=== PATIENT | female | born 1975 | race Caucasian/White ===

== ENCOUNTER → 2020-01-23 16:05 | Outpatient (CLI) | payer BC, SELFPAY ==
--- NOTE | ~2020-01-23 | XR_ITS ---
EXAMINATION: XR chest 2V DATE: 01/23/2020 17:57 INDICATION: Bronchitis. TECHNIQUE: Frontal and lateral views of the chest were obtained. COMPARISON: Chest 2 views 06/24/2013 FINDINGS: A calcified left lung nodule is consistent with old granulomatous disease. No pleural effus ion or pneumothorax. The heart size is normal. Surgical clips in the right upper quadrant are likely from cholecystectomy. IMPRESSION: 1. No acute cardiopulmonary disease. Reviewed, dictated and finalized at location A.
== END ==
PROVIDERS: PCP Physician Assistant; Visit Provider Physician Assistant
DX: J40 Bronchitis, not specified as acute or chronic (principal)
CPT/HCPCS: 71046

== ENCOUNTER 2020-04-11 14:01 | Outpatient (CLI) | payer BC, SELFPAY ==
--- NOTE | 2020-04-12 10:26 | WPDPFTINT ---
PFT Interpretation PFT Interpretation: This PFT met all criteria for ATS standards and reproducibility FEV/FVC post bronchodilator 79% FEV1 99% FVC 96% TLC 91% RV 73% RV/TLC 27% DLCO 84% when adjusted for alveolar volume but not adjusted for hemoglobin Flow volume loops were normal. Impression: Normal PFT. Clinical correlation is advised.
== END 2020-04-11 14:02 | disposition home or self-care (01) ==
PROVIDERS: PCP Nurse Practitioner Adult Health; Visit Provider Nurse Practitioner Adult Health
DX: R06.00 Dyspnea, unspecified (principal)
CPT/HCPCS: 94375; 94726; 94729

== ENCOUNTER 2021-06-21 11:14 | Emergency (ER) | payer BC, SELFPAY ==
--- NOTE | ~2021-06-21 | XR_ITS ---
XR chest 2V DATE: 06/21/2021 11:53 INDICATION: Cough, fatigue TECHNIQUE: 2 views COMPARISON: 01/23/2020 2 view chest FINDINGS: Normal heart size. No hilar or mediastinal enlargement. No pulmonary infiltrate or consolid ation, pleural effusion or pulmonary vascular congestion or pneumothorax. Surgical clips, right upper quadrant, consistent with cholecystectomy IMPRESSION: No active cardiopulmonary disease or significant change since 01/23/2020 Reviewed, dictated and finalized at location A. 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
[2021-06-21 11:26] VITALS: BP 137/90; PULSE 89; RESP 16; TEMP 36.3; O2SAT 100
--- NOTE | 2021-06-21 11:37 | ED.URI ---
HPI - URI/Sore Throat General Chief Complaint: Upper Respiratory Infection Stated Complaint: Chest Congestion,Shortness of Breath Time Seen by Provider: 06/21/21 11:37 Source: patient Mode of arrival: ambulatory Limitations: no limitations History of Present Illness HPI Narrative: Domonique Asencio is a 46 yo female no PMH comes to [facility] with complaints of a dry cough and congestion and occasional fullness of ears that it was going on for a number of weeks after having Covid at the beginning of May along with her . She had a video visit and was given doxycycline and steroids that she is finished and still has symptoms Related Data Allergies Allergy/AdvReac Type Severity Reaction Status Date / Time Penicillins Allergy Mild Rash Verified 06/21/21 11:35 Sulfa (Sulfonamide Allergy Mild Rash Verified 06/21/21 11:35 Antibiotics) cephalexin AdvReac Intermediate Hives Verified 06/21/21 11:35 Review of Systems Review of Systems: CONSTITUTIONAL: Denies fever, chills, sweats. EYES: Denies visual changes, redness, discharge. ENT: Denies rhinorrhea, has congestion, sore throat, otalgia. CARDIOVASCULAR: Denies chest pain, palpitations, edema. RESPIRATORY: Denies dyspnea, wheezing, has cough GASTROINTESTINAL: Denies abdominal pain, nausea, vomiting, diarrhea. GENITOURINARY: Denies dysuria, hematuria, abnormal discharge SKIN: Denies rash or itching. NEUROLOGIC: Denies numbness, or focal weakness. PSYCHIATRIC: Denies anxiety or depression. PMFSH Past Medical History Medical History Dermatofibroma Family History Family History Father Hypertension Family history of diabetes mellitus in first degree relative Family history of glaucoma Other Diabetes mellitus Family history of arthritis Family history of heart disease in male family member before age 55 Social History Social History Smoking status: Never smoker Alcohol intake: never Comments At time of signature, I agree with nursing past medical, surgical, social and family history. There is no relevant family history pertinent to the presenting complaint. Exam Narrative: GENERAL: This is a well-nourished, well-developed patient, in mild distress. HEAD: normocephalic, atraumatic. EYES: Sclera clear/white. Vision is grossly intact. EARS: External ears normal, auditory canals erythema and without drainage, fluid behind TMs. Hearing grossly intact. NOSE: External nose normal without nasal discharge, nares without redness, no rhinorrhea. THROAT: Mucous membranes moist, posterior pharynx erythema NECK: Neck supple, non-tender CARDIOVASCULAR: Regular rate and rhythm without murmurs, gallops, or rubs. RESPIRATORY: Clear to auscultation. Breath sounds equal bilaterally. No wheezes, rales, or rhonchi. GASTROINTESTINAL: Abdomen soft, SKIN: warm, intact with no suspicious lesions or rash, good texture and turgor. NEURO: awake, alert, and oriented to person, place and time. There were no obvious focal neurologic abnormalities. Steady gait EXTREMITIES: Normal range of motion. BACK: Nontender without deformity Course Course Emergency Course: Patient here with continuing upper respiratory symptoms after having Covid the beginning of May and having completed a course of steroids and doxycycline for bronchitis chest x-ray done- no acute pathology flu- started on zyrtec, albuterol inhaler, tessalon perles Level of Care: Express Care Visit Vital Signs Vital signs: Vital Signs Temperature 97.4 F L 06/21/21 11:26 Pulse Rate 89 06/21/21 11:26 Respiratory Rate 16 06/21/21 11:26 Blood Pressure 137/90 06/21/21 11:26 Pulse Oximetry 100 06/21/21 11:26 Temperature 97.4 F L 06/21/21 11:26 Pulse Rate 89 06/21/21 11:26 Respiratory Rate 16 06/21/21 11:26 Blood Pressure 137/90
== END 2021-06-21 12:35 | disposition home or self-care (01) ==
PROVIDERS: Emergency Provider Nurse Practitioner; PCP Nurse Practitioner Adult Health
DX: J06.9 Acute upper respiratory infection, unspecified (principal); Z86.16 Personal history of COVID-19
CPT/HCPCS: 71046; 87804; 99213; G0463

== ENCOUNTER 2022-06-17 16:37 | Emergency (ER) | payer BC, SELFPAY ==
--- NOTE | ~2022-06-17 | XR_ITS ---
EXAMINATION: XR chest 2V DATE: 06/17/2022 17:17 INDICATION: 5 days of cough TECHNIQUE: PA and lateral views of the chest were obtained. COMPARISON: Chest radiograph dated 06/21/2021 FINDINGS: No airspace opacities, pulmonary edema, pleural effusion or pneumothorax. The cardiomediastinal silho uette is normal. Cholecystectomy clips in right upper quadrant. IMPRESSION: 1. No acute cardiopulmonary disease. Reviewed, dictated and finalized at location A. 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
[2022-06-17 16:44] VITALS: BP 136/88; PULSE 88; RESP 16; TEMP 36.3; O2SAT 99
[2022-06-17 16:47] VITALS: BP 136/88; PULSE 88; RESP 16; TEMP 36.3; O2SAT 99
--- NOTE | 2022-06-17 16:47 | ED.URI ---
HPI - URI/Sore Throat General Chief Complaint: Upper Respiratory Infection Stated Complaint: Chest Pain,Fatigue Time Seen by Provider: 06/17/22 16:56 Source: patient, RN notes reviewed and old records reviewed Mode of arrival: ambulatory Limitations: no limitations History of Present Illness HPI Narrative: 47-year-old female presents to the [facility] with complaints of fatigue and intermittent chest wall pain, worse when she breathes cold air. reports a dry cough. the symptoms started last week approximately 5 days ago. Has not taken anything for her symptoms verbalizes Concern for pneumonia Related Data Allergies Allergy/AdvReac Type Severity Reaction Status Date / Time Penicillins Allergy Mild Rash Verified 06/21/21 11:35 Sulfa (Sulfonamide Allergy Mild Rash Verified 06/21/21 11:35 Antibiotics) cephalexin AdvReac Intermediate Hives Verified 06/21/21 11:35 Review of Systems Review of Systems: All systems reviewed & are unremarkable except as noted in HPI and below Constitutional: Constitutional: Reports no additional constitutional complaints Eyes: Eyes: Reports no additional eye complaints ENT: Reports as per HPI Cardiovascular: Cardiovascular: Reports no additional cardiovascular complaints, Denies chest pain and Denies dyspnea Respiratory: Respiratory: Reports as per HPI, Denies chest congestion, Reports cough and Denies dyspnea Gastrointestinal: Gastrointestinal: Reports no additional gastrointestinal complaints, Denies abdominal pain, Denies nausea and Denies vomiting Musculoskeletal: Musculoskeletal: Reports no additional musculoskeletal complaints Integumentary/Breasts: Skin/Breast: Reports system reviewed and no additional complaints, except as docu Neurologic: Reports system reviewed and no additional complaints, except as documented Psychiatric: Psychiatric: Reports no additional psychiatric complaints Allergic/Immunologic: Allergic/Immunologic: Reports no additional allergic/immunologic complaints [facility] Past Medical History Medical History Dermatofibroma Family History Family History Father Hypertension Family history of diabetes mellitus in first degree relative Family history of glaucoma Other Diabetes mellitus Family history of arthritis Family history of heart disease in male family member before age 55 Social History Social History Smoking status: Never smoker Alcohol intake: never Comments At the time of my signature, I reviewed and agree with the nursing past medical, surgical, social, and family history. There is no relevant family history pertinent to the patient complaint. Exam Const: General: cooperative, healthy appearing, comfortable, no acute distress, well developed, alert and well nourished Nutritional Appearance: well nourished Orientation/consciousness: patient oriented x3 Limitations: no limitations HENMT: Head: normal to inspection Ears: hearing grossly normal bilaterally and external ears normal Face/Nose/Sinus: Normal external nose present, Normal nares present, Normal nasal mucous membranes and turbinates present and normal facial exam Face and sinus: normal facial exam Mouth: Yes Normal oral and palatal mucosa present, Yes lip normal and Yes moist mucous membranes Throat: posterior oropharynx normal and uvula midline Eyes: General: appearance normal, both eyes and all related structures Alignment and Position: alignment normal Periorbital: periorbital findings normal Conjunctivae: conjunctivae normal Pupils: Equal, round and reactive pupils present EOM: EOMs intact bilaterally Neck: Neck: normal visual inspection, full ROM, no lymphadenopathy and no meningeal signs Chest: Chest palpation & inspection: normal inspection of the chest Resp: Effort & Inspection: normal respir
== END 2022-06-17 17:43 | disposition home or self-care (01) ==
PROVIDERS: Emergency Provider Nurse Practitioner; Referring Provider Nurse Practitioner
DX: J40 Bronchitis, not specified as acute or chronic (principal); Z20.822 Contact with and (suspected) exposure to COVID-19
CPT/HCPCS: 71046; 87426; 87804; 99213; C9803; G0463

== ENCOUNTER 2022-11-25 09:00 | Outpatient (NON) | payer BC, SELFPAY | END 2022-11-25 09:01 | disposition home or self-care (01) | LOC: ANHLAB 11-26 13:55 | PROVIDERS: Visit Provider Nurse Practitioner | DX: D49.2 Neoplasm of unspecified behavior of bone, soft tissue, and skin (principal) | CPT/HCPCS: 88305 ==

== ENCOUNTER 2022-12-16 12:32 | Outpatient (NON) | payer BC, SELFPAY | END 2022-12-16 12:33 | disposition home or self-care (01) | LOC: ANHLAB 12-17 12:34 | PROVIDERS: Visit Provider Nurse Practitioner | DX: L90.5 Scar conditions and fibrosis of skin (principal) | CPT/HCPCS: 88305 ==

== ENCOUNTER 2023-11-18 10:50 | Emergency (ER) | payer BC, SELFPAY ==
[2023-11-18 11:01] VITALS: BP 124/87; PULSE 106; RESP 16; TEMP 36.9; O2SAT 97
--- NOTE | 2023-11-18 11:01 | ED.URI ---
HPI - URI/Sore Throat General Chief Complaint: Upper Respiratory Infection Stated Complaint: Fever, Tightness in Chest Time Seen by Provider: 11/18/23 11:01 Source: patient Mode of arrival: ambulatory Limitations: no limitations History of Present Illness HPI Narrative: 48 yo F presents with c/o cough, nasal and chest congestion, fatigue, bodyaches, fever for 3 days. Using cough drops and tylenol to treat symptoms. Concerned because congestion in chest, pneumonia. No SOB/CP. All systems reviwed and negative except as noted above. Related Data Home Medications Medication Instructions Recorded Confirmed No Home Medications 11/18/23 11/18/23 Allergies Allergy/AdvReac Type Severity Reaction Status Date / Time cephalexin Allergy Intermediate Hives Verified 11/18/23 11:01 Penicillins Allergy Mild Rash Verified 11/18/23 11:01 Sulfa (Sulfonamide Allergy Mild Rash Verified 11/18/23 11:01 Antibiotics) Review of Systems Review of Systems: CONSTITUTIONAL: Denies fever, chills, or sweats. EYES: Denies visual changes, redness, or discharge. ENT: reports rhinorrhea, congestion. Denies sore throat, or otalgia. CARDIOVASCULAR: Denies chest pain, palpitations, or edema. RESPIRATORY: reports cough. Denies dyspnea. GASTROINTESTINAL: Denies abdominal pain, nausea, vomiting, or diarrhea. GENITOURINARY: Denies dysuria or hematuria. SKIN: Denies rash or itching. MUSCULOSKELETAL: Denies back pain, joint pain, or myalgia. NEUROLOGIC: Denies headache, numbness, or weakness. PSYCHIATRIC: Denies anxiety or depression. All other systems reviewed are negative, except as documented in HPI. [facility] Past Medical History Medical History Dermatofibroma Family History Family History Father Hypertension Family history of diabetes mellitus in first degree relative Family history of glaucoma Other Diabetes mellitus Family history of arthritis Family history of heart disease in male family member before age 55 Social History Social History Smoking status: Never smoker Alcohol intake: never Comments At time of signature, agree with nursing past medical, surgical, social and family history. There is no relevant family history pertinent to the presenting complaint. Exam Narrative: GENERAL: This is a well-nourished, well-developed patient, ill-appearing but no acute distress HEAD: normocephalic, atraumatic. EYES: PERRL. Sclera clear/white. Vision is grossly intact. EARS: External ears normal, auditory canals clear and without drainage, TMs normal without perforation. Hearing grossly intact. NOSE: External nose normal with clear nasal drainage with erythema to nares. THROAT: Mucous membranes moist, posterior pharynx clear. NECK: Neck supple, non-tender without lymphadenopathy, masses or thyromegaly. CARDIOVASCULAR: Regular rate and rhythm without murmurs, gallops, or rubs. RESPIRATORY: Clear to auscultation. Breath sounds equal bilaterally. No wheezes, rales, or rhonchi. SKIN: warm, Dry, intact with no suspicious lesions or rash, good texture and turgor. NEURO: awake, alert, and oriented to person, place and time. There were no obvious focal neurologic abnormalities. EXTREMITIES: No joint tenderness, effusion, or edema noted. Course Course Level of Care: Express Care Visit Vital Signs Vital signs: Vital Signs Temperature 36.9 C 11/18/23 11:01 Pulse Rate 106 H 11/18/23 11:01 Respiratory Rate 16 11/18/23 11:01 Blood Pressure 124/87 11/18/23 11:01 Pulse Oximetry 97 11/18/23 11:01 Oxygen Delivery Room Air 11/18/23 11:01 Temperature 36.9 C 11/18/23 11:01 Pulse Rate 106 H 11/18/23 11:01 Respiratory Rate 16 11/18/23 11:01 Blood Pressure 124/87 11/18/23 11:01 Pulse Oximetry 97 11/18/23 11:01 Oxygen Delivery Ro
[2023-11-18 11:20] LABS: EDINFLUASCREEN Negative; EDINFLUBSCREEN Negative
== END 2023-11-18 11:22 | disposition home or self-care (01) ==
PROVIDERS: Emergency Provider Nurse Practitioner Family; PCP Emergency Medicine
DX: J06.9 Acute upper respiratory infection, unspecified (principal); Z20.822 Contact with and (suspected) exposure to COVID-19
CPT/HCPCS: 87426; 87804; 99213; G0463

== ENCOUNTER 2023-11-22 16:44 | Emergency (ER) | payer BC, SELFPAY ==
--- NOTE | ~2023-11-22 | XR_ITS ---
Clinical Indication: Cough, fever PA and lateral views of the chest: Comparison: 06/17/2022 Findings: Small right pleural effusion present. Probable discoid left basilar atelectasis. Cardiomed iastinal silhouette is within normal limits. Bones and soft tissues are unremarkable. Impression: Small right pleural effusion. Probable discoid left basilar atelectasis. Reviewed, dictated and finalized at location . Impression: Small right pleural effusion. Probable discoid left basilar atelectasis.
--- NOTE | 2023-11-22 16:53 | ED.URI ---
HPI - URI/Sore Throat General Chief Complaint: Upper Respiratory Infection Stated Complaint: FEVER/COUGH Source: patient, RN notes reviewed and old records reviewed Mode of arrival: ambulatory Limitations: no limitations History of Present Illness HPI Narrative: patient presents with complaints of fever and cough. Patient was seen at [facility] on 11/18/2023. Negative flu and COVID that time. Diagnosed with viral illness. She returns today saying that she is feeling worse . She has been using [id number] ibuprofen and Tylenol with poor relief, albuterol with moderate relief. Related Data Allergies Allergy/AdvReac Type Severity Reaction Status Date / Time cephalexin Allergy Intermediate Hives Verified 11/22/23 16:53 Penicillins Allergy Mild Rash Verified 11/22/23 16:53 Sulfa (Sulfonamide Allergy Mild Rash Verified 11/22/23 16:53 Antibiotics) Review of Systems Review of Systems: All systems reviewed & are unremarkable except as noted in HPI and below Constitutional: Constitutional: Reports as per HPI, Reports no additional constitutional complaints, Reports fever(s) and Reports malaise ENT: Reports system reviewed and no additional complaints, except as documented Cardiovascular: Cardiovascular: Reports no additional cardiovascular complaints Respiratory: Respiratory: Reports no additional respiratory complaints, Reports chest congestion and Reports cough Gastrointestinal: Gastrointestinal: Reports no additional gastrointestinal complaints Musculoskeletal: Musculoskeletal: Reports myalgias PMFSH Past Medical History Medical History Dermatofibroma Family History Family History Father Hypertension Family history of diabetes mellitus in first degree relative Family history of glaucoma Other Diabetes mellitus Family history of arthritis Family history of heart disease in male family member before age 55 Social History Social History Smoking status: Never smoker Alcohol intake: never Comments At the time of my signature, I reviewed and agree with the nursing past medical, surgical, social, and family history. There is no relevant family history pertinent to the patient complaint. Exam Const: General: cooperative, no acute distress, alert, awake and ill appearing Orientation/consciousness: oriented to person, oriented to place and oriented to time HENMT: Head: normal to inspection Resp: Effort & Inspection: normal respiratory effort and able to speak in complete sentences Auscultation: clear to auscultation bilaterally, no crackles, no rales, no rhonchi, no wheezes and diminished lung sounds ( left lower lobe diminished) Cardio: Palpation: normal PMI Rate: regular rate Rhythm: regular rhythm Heart sounds: S1 normal heart sound present and S2 normal heart sound present Neuro: General: oriented to person, oriented to place and oriented to time Cranial nerves: Yes CN's II-XII intact bilaterally Psych: Appearance: grossly normal Thought process: Normal thought process present Insight: Good insight present (Psych) Judgement: Good judgement present (Psych) Course Course Level of Care: Express Care Visit Reevaluation(s) Reevaluation #1: pulse rate went down to 113 after rest and ibuprofen. Patient stable for discharge home Vital Signs Vital signs: Vital Signs Temperature 100.3 F H 11/22/23 16:54 Pulse Rate 120 H 11/22/23 16:54 Respiratory Rate 18 11/22/23 16:54 Blood Pressure 143/97 H 11/22/23 16:54 Pulse Oximetry 96 11/22/23 16:54 Temperature 100.3 F H 11/22/23 17:15 Pulse Rate 120 H 11/22/23 16:54 Respiratory Rate 18 11/22/23 16:54 Blood Pressure 143/97 H 11/22/23 16:54 Pulse Oximetry 96 11/22/23 16:54 Oxygen Delivery Room Air 11/22/23 16:59 Reviewed EMILY - RADHA/Edwige Draper
[2023-11-22 16:54] VITALS: BP 143/97; PULSE 120; RESP 18; TEMP 37.9; O2SAT 96
[2023-11-22 17:15] VITALS: TEMP 37.9
[2023-11-22] MEDS: IBUPROFEN 400 MG TABLET 800 MG PO (17:15)
[2023-11-22 17:25] VITALS: BP 137/95; PULSE 113; RESP 16; TEMP 38.2; O2SAT 97
[2023-11-22 17:36] VITALS: TEMP 38.2
== END 2023-11-22 17:33 | disposition home or self-care (01) ==
PROVIDERS: Emergency Provider Nurse Practitioner Family
DX: J18.9 Pneumonia, unspecified organism (principal)
CPT/HCPCS: 71046; 99213; A9270; G0463

== ENCOUNTER 2023-12-09 17:14 | Emergency (ER) | payer BC, SELFPAY ==
--- NOTE | ~2023-12-09 | XR_ITS ---
EXAMINATION: XR chest 2V DATE: 12/09/2023 17:34 INDICATION: Cough and shortness of breath TECHNIQUE: PA and lateral views of the chest were obtained. COMPARISON: Chest radiograph dated 11/22/2023 FINDINGS: Prior bibasilar opacities have resolved. Calcified nodule at the left lung base consistent with old g ranulomatous disease. No new airspace opacities, pulmonary edema, pleural effusion or pneumothorax. T he cardiomediastinal silhouette is normal. Consistent with cystectomy clips in right upper quadrant. IMPRESSION: 1. No acute cardiopulmonary disease. Reviewed, dictated and finalized at location A.
--- NOTE | 2023-12-09 17:17 | ED.URI ---
HPI - URI/Sore Throat General Chief Complaint: Upper Respiratory Infection Stated Complaint: COUGH/CHEST TIGHT Time Seen by Provider: 12/09/23 17:15 Source: patient Mode of arrival: ambulatory Limitations: no limitations History of Present Illness HPI Narrative: Domonique is a 48-year-old female patient presenting to the clinic today with complaints of cough and chest tightness. She reports this has been ongoing since she was seen last-2 weeks ago. Patient was seen on November 17 and again on November 21. On November 17 she was diagnosed with viral illness and on the she was diagnosed with possible left lower lobe pneumonia. November 21 x-ray reviewed shows probable left basilar atelectasis and a small right pleural effusion. Has been taking doxycycline 100mg daily since she was on the as well as using an albuterol inhaler. She reports shortness of breath only occurs when she is coughing. Patient states she was feeling slightly better with treatment however, feels as though the last few days she is going back down hill. MD elicited complaint: cough, nasal congestion and other (Chest tightness) Related Data Allergies Allergy/AdvReac Type Severity Reaction Status Date / Time cephalexin Allergy Intermediate Hives Verified 12/09/23 17:21 Penicillins Allergy Mild Rash Verified 12/09/23 17:21 Sulfa (Sulfonamide Allergy Mild Rash Verified 12/09/23 17:21 Antibiotics) Review of Systems Review of Systems: Pertinent positives per HPI. Patient denies any fever, chills, rash, headache, visual changes, dizziness, shortness of breath, chest pain, palpitations, nausea, vomiting, diarrhea, constipation, abdominal pain, or any urinary issues. [facility] Past Medical History Medical History Dermatofibroma Family History Family History Father Hypertension Family history of diabetes mellitus in first degree relative Family history of glaucoma Other Diabetes mellitus Family history of arthritis Family history of heart disease in male family member before age 55 Social History Social History Smoking status: Never smoker Alcohol intake: never Comments At the time of my signature, I reviewed and agree with the nursing past medical, surgical, social, and family history. There is no relevant family history pertinent to the patient complaint. Exam Narrative: General: Well-developed, well nourished, in no apparent distress Head: Normocephalic, atraumatic Eyes: Pupils equally round and reactive to light bilaterally, EOM intact, sclera and conjunctive clear, no discharge, lids normal Ears: TMs intact and clear, ear canals clear, no drainage, grossly hearing normal. Nose: Nares patent, no discharge, no inflammation, no sinus tenderness. Mouth: Oral pharynx without lesions or masses, good dentition, MMM. Neck: Supple, trachea midline, no enlargement of anterior or posterior cervical nodes, no thyroid masses or goiter palpable. Cardio: Regular rate and rhythm, s1 and s2 normal, no murmur appreciated. Resp: Clear to auscultation bilaterally, no rhonchi, rales, wheezing or rubs Course Course Emergency Course: Portions of this record may have been created with voice recognition software. Level of Care: Express Care Visit Vital Signs Vital signs: Vital Signs Temperature 36.6 C 12/09/23 17:22 Pulse Rate 78 12/09/23 17:22 Respiratory Rate 16 12/09/23 17:22 Blood Pressure 120/80 12/09/23 17:22 Pulse Oximetry 100 12/09/23 17:22 Temperature 36.6 C 12/09/23 17:23 Pulse Rate 78 12/09/23 17:23 Respiratory Rate 16 12/09/23 17:23 Blood Pressure 120/80 12/09/23 17:23 Pulse Oximetry 100 12/09/23 17:23 Vital signs reviewed MDM - URI/Sore Throat MDM Narrative Medical decision making narrative: At the time of visit sharifa
[2023-12-09 17:22] VITALS: BP 120/80; PULSE 78; RESP 16; TEMP 36.6; O2SAT 100
[2023-12-09 17:23] VITALS: BP 120/80; PULSE 78; RESP 16; TEMP 36.6; O2SAT 100
--- NOTE | 2023-12-10 11:21 | PC.NURSE ---
1100 patient had called in regarding the number of antibiotics that she reported she has left from yesterday's visit; spoke with provider Adan Dominguez and he reports no further antibiotics needed if she had completed the previous prescription. Patient notified to continue treatment ordered yesterday.
== END 2023-12-09 17:48 | disposition home or self-care (01) ==
PROVIDERS: Emergency Provider Nurse Practitioner Family
DX: J40 Bronchitis, not specified as acute or chronic (principal)
CPT/HCPCS: 71046; 99213; G0463

== ENCOUNTER 2024-07-06 11:33 | Emergency (ER) | payer BC, SELFPAY ==
[2024-07-06 11:41] VITALS: BP 140/101; PULSE 82; RESP 18; TEMP 36.3; O2SAT 97
--- NOTE | 2024-07-06 11:45 | ED.URI ---
HPI - URI/Sore Throat General Chief Complaint: Upper Respiratory Infection Stated Complaint: flu Time Seen by Provider: 07/06/24 11:46 Source: patient Mode of arrival: ambulatory Limitations: no limitations History of Present Illness HPI Narrative: 49-year-old female presents with complaint of cough, chest congestion, nasal congestion, fatigue and low-grade fever. Patient reports that she has symptoms for a total of 7-8 days. Was feeling better for a day are to and then symptoms returned. Patient reports history of pneumonia. Feels pain to her left mid back with coughing. Concern For pneumonia. Denies nausea vomiting diarrhea. All systems reviewed and negative except as noted above. Related Data Allergies Allergy/AdvReac Type Severity Reaction Status Date / Time cephalexin Allergy Intermediate Hives Verified 07/06/24 11:40 Penicillins Allergy Mild Rash Verified 07/06/24 11:40 Sulfa (Sulfonamide Allergy Mild Rash Verified 07/06/24 11:40 Antibiotics) Review of Systems Review of Systems: CONSTITUTIONAL: Reports fever, chills, or sweats. EYES: Denies visual changes, redness, or discharge. ENT: reports rhinorrhea, congestion. Denies sore throat, or otalgia. CARDIOVASCULAR: Denies chest pain, palpitations, or edema. RESPIRATORY: reports cough. Denies dyspnea. GASTROINTESTINAL: Denies abdominal pain, nausea, vomiting, or diarrhea. GENITOURINARY: Denies dysuria or hematuria. SKIN: Denies rash or itching. MUSCULOSKELETAL: Denies back pain, joint pain, or myalgia. NEUROLOGIC: Denies headache, numbness, or weakness. PSYCHIATRIC: Denies anxiety or depression. All other systems reviewed are negative, except as documented in HPI. [facility] Past Medical History Medical History Dermatofibroma Family History Family History Father Hypertension Family history of diabetes mellitus in first degree relative Family history of glaucoma Other Diabetes mellitus Family history of arthritis Family history of heart disease in male family member before age 55 Social History Social History Smoking status: Never smoker Alcohol intake: never Comments At time of signature, agree with nursing past medical, surgical, social and family history. There is no relevant family history pertinent to the presenting complaint. Exam Narrative: GENERAL: This is a well-nourished, well-developed patient, ill-appearing but in no acute distress HEAD: normocephalic, atraumatic. EYES: PERRL. Sclera clear/white. Vision is grossly intact. EARS: External ears normal, auditory canals clear and without drainage, TMs normal without perforation. Hearing grossly intact. NOSE: External nose normal with purulent nasal drainage, congestion, erythema and swelling to bilateral nares THROAT: Mucous membranes moist, erythematous with postnasal drainage NECK: Neck supple, non-tender without lymphadenopathy, masses or thyromegaly. CARDIOVASCULAR: Regular rate and rhythm without murmurs, gallops, or rubs. RESPIRATORY: Clear to auscultation. Breath sounds equal bilaterally. No wheezes, rales, or rhonchi. SKIN: warm, Dry, intact with no suspicious lesions or rash, good texture and turgor. NEURO: awake, alert, and oriented to person, place and time. There were no obvious focal neurologic abnormalities. EXTREMITIES: No joint tenderness, effusion, or edema noted. Course Course Level of Care: Express Care Visit Vital Signs Vital signs: Vital Signs Temperature 36.3 C L 07/06/24 11:41 Pulse Rate 82 07/06/24 11:41 Respiratory Rate 18 07/06/24 11:41 Blood Pressure 140/101 H 07/06/24 11:41 Pulse Oximetry 97 07/06/24 11:41 Oxygen Delivery Room Air 07/06/24 11:41 Temperature 36.3 C L 07/06/24 11:41 Pulse Rate 82 07/06/24 11:41 Respiratory Rate 18 07/06/24 11:41 Blood Pressure 140/101 H 07/06/24 11:41 Pulse Oximetry 97 07/06/24 11:41 Oxygen Delivery Room Air 07/06/24 11:41 reviewed MDM - URI/Sore Throat MDM Narrative Medical decision making narrative: negative influenza. Will treat patient for bacterial sinusitis due to duration of symptoms and exam findings. Patient is alert, nontoxic. Recommend she continue [id number]-[id number] medications to treat sinus congestion. Please be advised this is a medical document. It is intended for [id number] communication. It is written in medical language and may contain unfamiliar abbreviations or verbiage. Medical documents are intended to carry relevant information, facts as evident, and the clinical opinion of the practitioner at the time of the encounter. This report may have been done utilizing a voice recognition system. Attempts have been made to correct errors. However, there may be uncorrected grammatical, spelling, and recognition errors present. The file time of this note does not necessarily represent the time of service. Differential Diagnosis Differential diagnosis: Likely upper respiratory infection, sinusitis, viral infection and influenza Discharge Plan Discharge Clinical Impression: Acute bacterial sinusitis Patient Disposition: Home, Self-Care Condition: Stable Instructions: Antibiotic Form, Sinusitis (ED) Additional Instructions: your influenza test was negative today. Take medications as prescribed. Continue taking [id number] medication to treat her symptoms such as DayQuil NyQuil cold and Sinus. Use an [id number]-phcoyhz nasal spray such as Flonase or Nasacort. Place cool mist humidifier in bedroom where you sleep. Follow-up with your doctor if symptoms are not improving. Patient Language: Sinhala Prescriptions: New doxycycline hyclate 100 mg capsule 100 mg PO BID 7 Days Qty: 14 0RF methylprednisolone [Medrol (Cecil)] 4 mg tablets,dose pack See Rx Instructions PO .COMPLEX Qty: 21 0RF Rx Instructions: orally per package directions No Action doxycycline hyclate 100 mg tablet 100 mg PO DAILY Qty: 20 0RF albuterol sulfate 90 mcg/actuation HFA aerosol inhaler 2 puff inhalation QID PRN (Reason: shortness of breath or wheezing) Qty: 8.5 0RF prednisone 20 mg tablet 40 mg PO DAILY 5 Days Qty: 10 0RF Follow-up/Referrals: PHYSICIAN,[facility] [Primary Care Provider] - Time of Disposition: 12:07
[2024-07-06 12:03] LABS: EDINFLUASCREEN Negative (Negative); EDINFLUBSCREEN Negative (Negative)
--- OUTSIDE RECORDS SUMMARY | 2024-07-06 13:26 | XMS_ITS | Clinical Summary ---
Author Organization [facility] Address [address] [place] [address] Phone Care Team Providers Care Skimmer Name Role Phone EnejudsonNigelie BRIAN Primary Care Provider [phone] Allergies Active Allergy Reactions Criticality Noted Date Comments Cephalexin Hives,Swelling High 09/06/2014 Penicillin G Swelling High 02/11/2009 Sulfa (Sulfonamide Antibiotics) Hives High 1008/2008 Medications ergocalciferol, vitamin D2, (VITAMIN D ORAL) Take by mouth daily. Active Vyzulta 0.024 % Drops 1 Active evening primrose oil (EVENING PRIMROSE ORAL) Take by mouth. Active cyanocobalamin, vitamin B-12, (VITAMIN B-12 ORAL) Take by mouth. Activ e flaxseed oil (OMEGA 3 ORAL) Take by mouth. Active BLACK COHOSH ORAL Take by mouth. Activ e estradioL (Yuvafem) 10 mcg tabletIndicatio ns:Vaginal atrophy Insert vaginally nightly for 2 weeks then twice weekly 24 Tablet 3 4 Active Active Problems Problem Noted Date Diagnosed Date S/P laparoscopic assisted vaginal hysterectomy ( LAVH) 04/25/2020 S/P BSO (bilateral salpingo-oophorectomy) 2019 s/p laparoscopy 09/20/2014 Encounters Date Type Department Care Team Description 06/28/2024 External Device Data STL ABSTRACTION Provider, Abstract 05/12/2024 Telephone [facility] Clinical Support [address] [place] [address] Kiley Mariscal RN Lab Results 04/21/2024 7:45 AM QUALITY SPECIALIST Office Visit [facility] [address] [facility] [address] [place] [address] Jenniffer Jiang DNP Encounter for gynecological examination with abnormal finding (Primary Dx); Vaginal atrophy; Screening for colon cancer; Breast cancer screening by mammogram from Last 3 Months Family History Medical History Relation Name Comments Diabetes Father Aamir Stroke Maternal Grandfather Gallito Breast Cancer Maternal Grandmother Breast Cancer Mother Grisel 60-70s; ER+ Diabetes Mother Grisel Relation Name Status Comments Father Aamir Alive Maternal Grandfather Gallito Maternal Grandmother Mother Grisel Alive Social History Tobacco Use Types Packs/Day Years Used Date Smoking Tobacco: Never Smokeless Tobacco: Never Tobacco Cessation:Counseling Given: Not Answered Alcohol Use Standard Drinks/Week Comments No 0 (1 standard drink = 0.6 oz pur e alcohol) Comments No Sex and Gender Information Value Date Recorded Sex Assigned at Not on file Legal Sex Female 5:46 AM QUALITY SPECIALIST Gender Identity Not on file Sexual Orientation Not on file Last Filed Vital Signs Vital Sign Reading Time Taken Comments Blood Pressure 122/80 04/21/2024 7:39 AM QUALITY SPECIALIST Pulse 74 04/26/2020 8:40 AM QUALITY SPECIALIST Temperature 36.7 C (98 F) 04/26/2020 8:40 AM QUALITY SPECIALIST Respiratory Rate 16 04/26/2020 8:40 AM QUALITY SPECIALIST Oxygen Saturation 100% 04/26/2020 8:40 AM QUALITY SPECIALIST Inhaled Oxygen Concentration - - Weight 75.3 kg (166 lb) 04/21/2024 7:39 AM QUALITY SPECIALIST Height 162.6 cm (5' 4 ) 04/21/2024 7:39 AM QUALITY SPECIALIST Body Mass Index 28.49 04/21/2024 7:39 AM QUALITY SPECIALIST Plan of Treatment Upcoming Encounters Date Type Department Care Team (Late st Contact Info) Description 04/25/2025 2:30 PM QUALITY SPECIALIST Office Visit [facility] [address] [phone] Jenniffer Jiang DNP [address] [place] [address] Health Maintenance Due Date Last Done Comments DTAP/TDAP/TD VACCINES (1 - Tdap) 1994 HEPATITIS B VACCINES (1 of 3 - 19+ 3-dose series) 1994 COLORECTAL SCREENING 2020 FIT/FOBT Q 1 year 2020 Flex Sig/CT Colonography Q 5 years 2020 CERVICAL CANCER SCREENING 03/12/2023 03/12/2020 INFLUENZA VACCINE (#1) 2023 BREAST CANCER SCREENING 03/14/2025 03/14/20, 03/14/2024, 03/09/2023, Additional history exists Pre-Diabetes and Diabetes Screening 2027 2024, 04/21/2023 Colorectal Cancer Screening 05/06/2027 FIT-DNA Q 3 years 05/06/2027 05/06/2024 Procedures Procedure Name Priority Date/Time Associated Diagnosis Comments COLON CANCER SCREEN, STOOL DNA Routine 05/06/2024 3:30 PM QUALITY SPECIALIST Screening for colon cancer LIPID PANEL Routine 2024 7:24 AM QUALITY SPECIALIST Encounter for gynecological examination with abnormal finding HEMOGLOBIN A1C Routine 2024 7:24 AM QUALITY SPECIALIST Encounter for gynecological examination with abnormal finding COMPREHENSIVE METABOLIC PANEL Routine 2024 7:24 AM QUALITY SPECIALIST Encounter for gynecological examination with abnormal finding CBC WITH DIFFERENTIAL Routine 2024 7:24 AM QUALITY SPECIALIST Encounter for gynecological examination with abnormal finding MAMMO SCREEN BILAT W OR WO CAD Routine 03/14/2024 8:10 AM QUALITY SPECIALIST CERV/VAG CYTO AGE BASED SCREEN PAP Routine 03/12/2020 4:42 PM QUALITY SPECIALIST Screening for cervical cancer from Last 3 Months or Most Recently Relevant to Health Maintenance Results * COLON CANCER SCREEN, STOOL DNA (05/06/2024 3:30 PM QUALITY SPECIALIST) COLOGUARD RESULT Negative Negative [employer] Comment: NEGATIVE TEST RESULT. A negative Cologuard result indicates a low likelihood that a colorectal cancer (CRC) or advanced adenoma (adenomatous polyps with more advanced pre-malignant features) is present. The chance that a person with a negative Cologuard test has a colorectal cancer is less than 1 in 1500 (negative predictive value >99.9%) or has an advanced adenoma is less than 5.3% (negative predictive value 94.7%). These data are based on a prospective cross-sectional study of 10,000 individuals at average risk for colorectal cancer who were screened with both Cologuard and colonoscopy. ([place] Draper. et al, N Engl J Med 2014;370(14):2623-7604) The normal value (reference range) for this assay is negative. COLOGUARD RE-SCREENING RECOMMENDATION: Periodic colorectal cancer screening is an important part of preventive healthcare for asymptomatic individuals at average risk for colorectal cancer. Following a negative Cologuard result, the [place] Cancer Society and U.S. Multi-Society Task Force screening guidelines recommend a Cologuard re-screening interval of 3 years. References: [place] Cancer Society Guideline for Colorectal Cancer Screening: https://www.cancer.org/cancer/rjtgt-rrqide-beqaiy/hgwixmzie-ggrkqgair-hqkyxoo/ac s-rec ommendations.html.; Piyush ARAMBULA, Johana EMMANUEL, Lorena RinconK, Colorectal Cancer Screening: Recommendations for Physicians and Patients from the U.S. Multi-Society Task Force on Colorectal Cancer Screening , Am J Gastroenterology 2017; 112:4613-1941. TEST DESCRIPTION: Composite algorithmic analysis of stool DNA-biomarkers with hemoglobin immunoassay. Quantitative values of individual biomarkers are not reportable and are not associated with individual biomarker result reference ranges. Cologuard is intended for colorectal cancer screening of adults of either sex, 45 years or older, who are at average-risk for colorectal cancer (CRC). Cologuard has been approved for use by the U.S. FDA. The performance of Cologuard was established in a cross sectional study of average-risk adults aged 50-84. Cologuard performance in patients ages 45 to 49 years was estimated by sub-group analysis of near-age groups. Colonoscopies performed for a positive result may find as the most clinically significant lesion: colorectal cancer [4.0%], advanced adenoma (including sessile serrated polyps greater than or equal to 1cm diameter) [20%] or non- advanced adenoma [31%]; or no colorectal neoplasia [45%]. These estimates are derived from a prospective cross-sectional screening study of 10,000 individuals at average risk for colorectal cancer who were screened with both Cologuard and colonoscopy. (Washington Zhou et al, N Engl J Med 2014;370(14):9748-3563.) Cologuard may produce a false negative or false positive result (no colorectal cancer or precancerous polyp present at colonoscopy follow up). A negative Cologuard test result does not guarantee the absence of CRC or advanced adenoma (pre-cancer). The current Cologuard screening interval is every 3 years. ([place] Cancer Society and U.S. Multi-Society Task Force). Cologuard performance data in a 10,000 patient pivotal study using colonoscopy as the reference method can be accessed at the following location: www.[employer]/results. Additional description of the Cologuard test process, warnings and precautions can be found at www.[employer].com. Stool STOOL SPECIMEN / Unknown 05/06/2024 3:30 PM QUALITY SPECIALIST 05/09/2024 4:00 PM QUALITY SPECIALIST us Jenniffer Jiang DNP BODY FLUIDS AND STOOLS Sarina hernandez Result [employer] [facility] # [id number] [facility] [address] , [address] [place] [address] * CBC WITH DIFFERENTIAL (2024 7:24 AM QUALITY SPECIALIST) WBC 6.5 3.8 - 10.8 Thousand/u L [facility] RBC 4.27 3.80 - 5.10 Million/uL [facility] HEMOGLOBIN 13.1 11.7 - 15.5 g/dL [facility] HEMATOCRIT 40.0 35.0 - 45.0 % [facility] MCV 93.7 80.0 - 100.0 fL [facility] MCH 30.7 27.0 - 33.0 pg [facility] MCHC 32.8 32.0 - 36.0 g/dL [facility] Comment: For adults, a slight decrease in the calculated MCHC value (in the range of 30 to 32 g/dL) is most likely not clinically significant; however, it should be interpreted with caution in correlation with other red cell parameters and the patient's clinical condition. RDW 13.1 11.0 - 15.0 % [facility] PLATELETS 214 140 - 400 Thousand/u L [facility] MPV 12.5 7.5 - 12.5 fL [facility] NEUTROPHIL ABSOLUTE 2,802 1,500 - 7,800 cells/uL [facility] LYMPHOCYTE ABSOLUTE 2,958 850 - 3,900 cells/uL [facility] MONOCYTE ABSOLUTE 481 200 - 950 cells/uL [facility] EOSINOPHIL ABSOLUTE 208 15 - 500 cells/uL [facility] BASOPHILS ABSOLUTE 52 0 - 200 cells/uL [facility] NEUTROPHIL 43.1 % [facility] LYMPHOCYTES 45.5 % [facility] MONOCYTE 7.4 % [facility] EOSINOPHILS 3.2 % [facility] BASOPHILS 0.8 % [facility] Comment: FASTING:YES FASTING: YES Test Performed at: [facility] [address] Alycia Oliveira MD Blood 2024 7:24 AM QUALITY SPECIALIST 2024 7:25 AM QUALITY SPECIALIST Jenniffer Jiang DNP HEMATOLOGY ORDERABLES Final Result [facility] [phone] [employer] [address] * HEMOGLOBIN A1C (2024 7:24 AM QUALITY SPECIALIST) HEMOGLOBIN A1C 5.5 <5.7 % of total Hgb [facility] Comment: For the purpose of screening for the presence of diabetes: <5.7% Consistent with the absence of diabetes 5.7-6.4% Consistent with increased risk for diabetes (prediabetes) > or =6.5% Consistent with diabetes This assay result is consistent with a decreased risk of diabetes. Currently, no consensus exists regarding use of hemoglobin A1c for diagnosis of diabetes in children. According to [place] Diabetes Association (ADA) guidelines, hemoglobin A1c <7.0% represents optimal control in non- diabetic patients. Different metrics may apply to specific patient populations. Standards of Medical Care in Diabetes(ADA). ESTIMATED AVERAGE GLUCOSE (MG/DL) 111 mg/dL [employer] ESTIMATED AVERAGE GLUCOSE (MMOL/L) 6.2 mmol/L [facility] Comment: FASTING:YES FASTING: YES Test Performed at: [facility] [address] [address] Alycia Oliveira Blood 2024 7:24 AM QUALITY SPECIALIST 2024 7:25 AM QUALITY SPECIALIST Jenniffer Jiang [facility] CHEMISTRY ORDERABLES Final Result [facility] [phone] [facility] [place] [address] [address] [phone] * (ABNORMAL) LIPID PANEL (2024 7:24 AM QUALITY SPECIALIST) CHOLESTEROL 278(H) <200 mg/dL [facility] HDL 80 > OR = 50 mg/dL [facility] TRIGLYCERIDE 103 <150 mg/dL [facility] LDL CALCULATED 176(H) mg/dL (calc) [facility] Comment: Reference range: <100 Desirable range <100 mg/dL for primary prevention; <70 mg/dL for patients with CHD or diabetic patients with > or = 2 CHD risk factors. LDL-C is now calculated using the Hailee calculation, which is a validated novel method providing better accuracy than the Friedewald equation in the estimation of LDL-C. Victor Hugo LOPEZ et al. SHAVONNE. 2013;310(19): 8059-9401 (http://education.IGAWorks.BrightNest/faq/III168) CHOL/HDL RATIO 3.5 <5.0 (calc) [facility] NON-HDL CHOLESTEROL 198(H) <130 mg/dL (calc) [facility] Comment: For patients with diabetes plus 1 major ASCVD risk factor, treating to a non-HDL-C goal of <100 mg/dL (LDL-C of <70 mg/dL) is considered a therapeutic option. Test Performed at: [facility] [address] [place] [address] Alycia Oliveira MD Blood 2024 7:24 AM QUALITY SPECIALIST 2024 7:25 AM QUALITY SPECIALIST us Jenniffer Jiang [facility] CHEMISTRY ORDERABLES Final Result [facility] [phone] [employer] [address] [place] [address] * COMPREHENSIVE METABOLIC PANEL (2024 7:24 AM QUALITY SPECIALIST) GLUCOSE 88 65 - 99 mg/dL [facility] Comment: Fasting reference interval BUN 14 7 - 25 mg/dL [facility] CREATININE 0.64 0.50 - 0.99 mg/dL [facility] GFR 108 > OR = 60 mL/min/1. 73m2 [facility] BUN/CREAT RATIO SEE NOTE: 6 - 22 (calc) [facility] Comment: Not Reported: BUN and Creatinine are within reference range. SODIUM 143 135 - 146 mmol/L [facility] POTASSIUM 4.2 3.5 - 5.3 mmol/L [facility] CHLORIDE 104 98 - 110 mmol/L [facility] CO2 32 20 - 32 mmol/L [facility] CALCIUM 9.3 8.6 - 10.2 mg/dL [facility] TOTAL PROTEIN 7.0 6.1 - 8.1 g/dL [facility] ALBUMIN 4.6 3.6 - 5.1 g/dL [facility] GLOBULIN 2.4 1.9 - 3.7 g/dL (calc) [facility] ALBUMIN/GLOBULIN RATIO 1.9 1.0 - 2.5 (calc) [facility] BILIRUBIN TOTAL 0.9 0.2 - 1.2 mg/dL [facility] ALKALINE PHOSPHATASE 87 31 - 125 U/L [facility] AST 21 10 - 35 U/L [facility] ALT 21 6 - 29 U/L [facility] Comment: FASTING:YES FASTING: YES Test Performed at: [facility] [employer] [id number] [place] [address] Alycia Oliveira MD Blood 2024 7:24 AM QUALITY SPECIALIST 2024 7:25 AM QUALITY SPECIALIST us Jenniffer Jiang DNP CHEMISTRY ORDERABLES Final Result [facility] [phone] [employer] [address] * MAMMO SCREEN BILAT W OR WO CAD (03/14/2024 8:10 AM QUALITY SPECIALIST) Anatomical Region Laterality Modality Breast Bilateral Other us Tammy Saucedo DO MAMMO ORDERABLES Final Result * CERV/VAG CYTO AGE BASED SCREEN PAP (03/12/2020 4:42 PM QUALITY SPECIALIST) COMMENT (PAP): SEE COMMENT 11:25 AM QUALITY SPECIALIST [facility] Comment: This order for age-based cervical cancer and STI screening follows ACOG guidelines(PB 168, 140, TOX728). See individual assays for performing site location. CLINICAL INFORMATION Oral contraceptives 03/17/2020 11:25 AM QUALITY SPECIALIST [facility] LAST MENSTRUAL PERIOD INFORMATION NOT PROVIDED 03/17/2020 11:25 AM QUALITY SPECIALIST [facility] PREV PAP: [id number] NIL 03/17/2020 11:25 AM QUALITY SPECIALIST [facility] PREV BX: INFORMATION NOT PROVIDED 03/17/2020 11:25 AM QUALITY SPECIALIST [facility] SOURCE Endocervix 03/17/2020 11:25 AM QUALITY SPECIALIST [facility] ADEQUACY: SEE COMMENT 03/17/2020 11:25 AM [facility] Comment: Satisfactory for evaluation. Endocervical/transformation zone component present. Age and/or menstrual status not provided PAP INTERP Negative for intraepithelial lesion or malignancy. 03/17/2020 11:25 AM [facility] COMMENT This Pap test has been evaluated with computer assisted technology. 03/17/2020 11:25 AM [facility] PHYSICIAN REPRESENTATIVE: SEE COMMENT 2019 11:25 AM [facility] Comment: MVB, CT(ASCP) CT screening location: [place] [address] [place] [address] EXPLANATORY NOTE SEE COMMENT 020 11:25 AM [facility] Comment: EXPLANATORY NOTE: The Pap is a screening test for cervical cancer. It is not a diagnostic test and is subject to false negative and false positive results. It is most reliable when a satisfactory sample, regularly obtained, is submitted with relevant clinical findings and history, and when the Pap result is evaluated along with historic and current clinical information. HPV E6/E7 Not Detected Not Detected 03/17/2020 11:25 AM [facility] Comment: This test was performed using the APTIMA HPV Assay ([employer] This assay detects E6/E7 viral messenger RNA (mRNA) from 14 high-risk HPV types (16,18,31,33,35,39,45,51,52,56,58,59,66,68). The analytical performance characteristics of this assay have been determined by [employer] [employer] The modifications have not been cleared or approved by the FDA. This assay has been validated pursuant to the CLIA regulations and is used for clinical purposes. Genital SWAB OF ENDOCERVIX / Unknown Collection / Unknown 03/12/2020 4:42 PM QUALITY SPECIALIST 03/12/2020 7:33 PM QUALITY SPECIALIST Narrative [facility] - 03/17/2020 11:25 AM QUALITY SPECIALIST Performing Organization Information: Site ID: [id number] Name: [facility] Address: [address] [place] [address] Director: Iain Casanova D.O., MPH Site ID: [id number] Name: [employer] Address: [address] [place] [address] Director: Alycia Oliveira us Tammy Saucedo DO PATHOLOGY/CYTOLOGY ORD ERABLES Final Result [facility] [phone] from Last 3 Months or Most Recently Relevant to Health Maintenance Insurance [facility] BLUE ACCESS CHOICE RX [employer] Advance Directives For more information, please contact: [phone] * Full Code (Latest Code Status on File) Date Activated Date Inactivated Comments 04/25/2020 6:33 PM 04/26/2020 1:47 PM * Full Code Date Activated Date Inactivated Comments 09/20/2014 2:45 PM 09/20/2014 8:28 PM * Full Code Date Activated Date Inactivated Comments 09/20/2014 11:54 AM 09/20/2014 2:45 PM * Full Code Date Activated Date Inactivated Comments 02/11/2009 12:32 PM 02/13/2009 12:20 PM * Full Code Date Activated Date Inactivated Comments 02/11/2009 4:10 AM 02/11/2009 12:32 PM Care Teams Skimmer Relationship Specialty Start Date End Date Maribel Foy ANP [address] [address] PCP - General Nurse Practitioner Adult Health 03/15/21
--- OUTSIDE RECORDS SUMMARY | 2024-07-06 13:26 | XMS_ITS | Encounter Summary ---
Author Organization [facility] Address [address] [place] [address] Care Team Providers Care Certified Shorthand Reporter Name Role Phone Maribel Foy BRIAN Primary Care Provider Reason for Visit * Reason Comments Medication Refill Encounter Details Date Type Department Care Team (Late st Contact Info) Description 09/07/2018 Refill [facility] [address] [facility] [address] [place] [address] Devora Naranjo MD [address] [facility] [address] [place] [address] Social History Tobacco Use Types Packs/Day Years Used Date Smoking Tobacco: Never Alcohol Use Standard Drinks/Week Comments No 0 (1 standard drink = 0.6 oz pur e alcohol) Comments Unknown Sex and Gender Information Value Date Recorded Sex Assigned at Not on file Legal Sex Female 5:46 AM HEALTH 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 MANAGER Gender Identity Not on file Sexual Orientation Not on file documented as of this encounter Plan of Treatment Upcoming Encounters Date Type Department Care Team (Late st Contact Info) Description 04/25/2025 2:30 PM HEALTH POLICY MANAGER Office Visit [facility] [address] [facility] [address] [place] [address] Jenniffer Jiang DNP [address] [employer] [facility] [address] [place] [address] documented as of this encounter Visit Diagnoses Not on filedocumented in this encounter Care Teams Certified Shorthand Reporter Relationship Specialty Start Date End Date Maribel Foy ANP [address] [address] PCP - General Nurse Practitioner Adult Health 03/15/21 documented as of this encounter
--- OUTSIDE RECORDS SUMMARY | 2024-07-06 13:26 | XMS_ITS | Encounter Summary ---
Author Organization [facility] Address [address] [place] [address] Care Team Providers Care Personnel Clerk Name Role Phone Maribel Foy BRIAN Primary Care Provider Reason for Visit * Reason Comments Medication Refill Encounter Details Date Type Department Care Team (Late st Contact Info) Description 04/21/2019 Refill [facility] [address] [address] Yamileth Christy MD [address] [place] [address] Social History Tobacco Use Types Packs/Day Years Used Date Smoking Tobacco: Never Alcohol Use Standard Drinks/Week Comments No 0 (1 standard drink = 0.6 oz pur e alcohol) Comments Unknown Sex and Gender Information Value Date Recorded Sex Assigned at Not on file Legal Sex Female 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 IMAGING ASSISTANT Gender Identity Not on file Sexual Orientation Not on file documented as of this encounter Plan of Treatment Upcoming Encounters Date Type Department Care Team (Late st Contact Info) Description 04/25/2025 2:30 PM IMAGING ASSISTANT Office Visit [facility] [address] [address] Jenniffer Jiang DNP [address] [address] documented as of this encounter Visit Diagnoses Not on filedocumented in this encounter Care Teams Personnel Clerk Relationship Specialty Start Date End Date Maribel Foy ANP [address] [address] PCP - General Nurse Practitioner Adult Health 03/15/21 documented as of this encounter
--- OUTSIDE RECORDS SUMMARY | 2024-07-06 13:26 | XMS_ITS | Continuity of Care Document ---
Author Organization [facility] Address [address] [facility] [address] [place] [address] Phone Care Team Providers Care Abalone Fisherman Name Role Phone Clement Diop MD Unavailable Unavailable Allergies, Adverse Reactions, Alerts Substance Reaction Status Criticality Sulfa (Sulfonamide Antibiotics) Unknown Active No Information Penicillins Unknown Active No Information CEPHALEXIN MONOHYDRATE Unknown Active No In formation Medications Medication Instructions Dosage Effective Dates (start - stop) Status Comments Mobic 15 mg tablet take 1 tablet by ora l route every day - Active thyroid (pork) 60 mg tablet take 1 tablet by oral route every day 60 MG - Active Procedures Procedure Date OFFICE/OUTPATIENT VISIT [facility] Advance Directives Directive Yes / No Effective Date File Name No Information Encounters Encounter Description Practice Location Reason(s) For Visit Diagnoses Date Provider Providers Copied on Encounter [facility] Orthopa[facility] Surgery, [address] [place] [address], [facility], tel:[phone] [facility] No Information 8 Jadon Vaughan. [address] [place], [place], [id number] . tel: [phone] OFFICE/OUTPA TIENT VISIT [facility] Orthopaedic Surgery, [address] [place] [address], [address], [phone] [facility] Elevated blood-pressure reading, w/o diagnosis of htnBody mass index (BMI) 30.0-30.9, adultPrimary osteoarthritis of left kneePlantar fasciitis of left foot 8 Janie Meek. [address] [place], [place] [id number], [place], [id number] . tel: [phone] Family History Family Member Type Diagnosis Age At Onset Mother Problem (finding) Alive and well Father Problem (finding) Alive and well Payers Payer name Insurance type Covered constitution party ID Radha minaya(s) No Information Social History Type Description Quantity Date Captured Comments Alcohol Use Details Unknown Caffeine Use Details Unknown Tobacco Use Status No Information Smoking Status No Information Sex Female Chief Complaint And Reason For Visit No Information Reason For Referral Reason For Referral No Information Plan Of Treatment Date Type Action Status Referral Ordered: RADEX KNE COMPL 4/MORE VIEWS LT ordered History Of Present Illness Encounter Date Complaint History Of Prese nt Illness No Information Functional Status Date Functional Assessmen t No Information Instructions Date Instruction Additional Infor mation elevate higher than your heart R elated to Primary osteoarthritis of left knee immobilize if directed Related t o Primary osteoarthritis of left knee home exercise program Related to Primary osteoarthritis of left knee apply heating pad or ice as tolerated Related to Primary osteoarthritis of left knee Hypertension education Related t o Elevated blood-pressure reading without diagnosis of hypertension Giving encouragement to exercise Related to Body mass index (BMI) 30.0-30.9, adult activity as tolerated Related to Primary osteoarthritis of left knee activity as tolerated Related to Plantar fasciitis of left foot wear proper footwear as instruct ed Related to Plantar fasciitis of left foot Assessments Type Assessment Date No Information Patient Care Teams Name Effective Dates (start - stop) Status Members No Information
--- OUTSIDE RECORDS SUMMARY | 2024-07-06 13:26 | XMS_ITS | Continuity of Care Document ---
Author Organization [facility] Address [address] [place] [address] Phone Care Team Providers Care Concrete Products Machine Operator Name Role Phone Ruperto Perez MD Unavailable Unavailable Procedures Procedure Date Office/outpatient visit,[facility] 2010 Drain/inject major jointor bursa 2010 Depo Medrol Methylprednisolone 40 MG inj X-ray exam of knee, 3 views Advance Directives Directive Yes / No Effective Date File Name No Information Encounters Encounter Description Practice Location Reason(s) For Visit Diagnoses Date Provider Providers Copied on Encounter Office/outpat ient visit,[facility], [address], [id number], tel:[phone] [facility] PES ANSERINUS TENDINITISJOINT PAIN-L/LEG 1 Chris Hickey. [address] [facility], [facility] [address], [place], [place], [id number] , [place]. tel: [phone] Family History Family Member Type Diagnosis Age At Onset No Information Payers Payer name Insurance type Covered green party ID Authoriza tion(s) Nichelle Blue Cross Blue Shiel d [place] BL [id number] Social History Type Description Quantity Date Captured Comments Sex Female Smoking Status No Information Chief Complaint And Reason For Visit No Information Reason For Referral Reason For Referral No Information History Of Present Illness Encounter Date Complaint History Of Prese nt Illness No Information Functional Status Date Functional Assessmen t No Information Instructions Date Instruction Additional Infor mation No Information Assessments Type Assessment Date No Information Patient Care Teams Name Effective Dates (start - stop) Status Members No Information
--- OUTSIDE RECORDS SUMMARY | 2024-07-06 13:26 | XMS_ITS | Encounter Summary ---
Author Organization [facility] Address [address] [place] [address] Care Team Providers Care Head Housekeeper Name Role Phone Maribel Foy BRIAN Primary Care Provider [phone] Reason for Visit * Reason Comments Medication Refill Encounter Details Date Type Department Care Team (Late st Contact Info) Description 03/02/2019 Refill [facility] [address] [facility] [address] [place] [address] Devora Naranjo MD [address] [facility] [address] [place] [address] Social History Tobacco Use Types Packs/Day Years Used Date Smoking Tobacco: Never Alcohol Use Standard Drinks/Week Comments No 0 (1 standard drink = 0.6 oz pur e alcohol) Comments Unknown Sex and Gender Information Value Date Recorded Sex Assigned at Not on file Legal Sex Female 5: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 [address] [facility] [address] [place] [address] Jenniffer Jiang DNP [address] [facility] [address] [place] [address] documented as of this encounter Visit Diagnoses Not on filedocumented in this encounter Care Teams Head Housekeeper Relationship Specialty Start Date End Date Maribel Foy ANP [address] [address] PCP - General Nurse Practitioner Adult Health 03/15/21 documented as of this encounter
--- OUTSIDE RECORDS SUMMARY | 2024-07-06 13:29 | XMS_ITS | Continuity of Care Document ---
Author Organization [facility] Orthopa[facility] Surgery Address [address] [facility] [address] [place] [address] Phone Care Team Providers Care Meat Counter Worker Name Role Phone Clement Diop MD Unavailable [...] Active Procedures Procedure Date OFFICE/OUTPATIENT VISIT [facility] Advance Directives Directive Yes / No Effective Date File Name No Information Encounters Encounter Description Practice Location Reason(s) For Visit Diagnoses Date Provider Providers Copied on Encounter [facility] Orthopaedic Surgery, [address] [place] [address], [facility], [phone] [facility] No Information 8 Jadon Vaughan. [address] [place], [place], [id number] . tel: [phone] OFFICE/OUTPA TIENT VISIT [facility] Orthopaedic Surgery, [address] [place] [address], [address], [phone] [facility] Elevated blood-pressure reading, w/o diagnosis of htnBody mass index (BMI) 30.0-30.9, adultPrimary osteoarthritis of left kneePlantar fasciitis of left foot 8 Janie Meek. [address] [place], [place] [id number], [place], [id number] . tel: [phone] Family History Family Member Type Diagnosis Age At Onset Mother Problem (finding) Alive and well Father Problem (finding) Alive and well Payers Payer name Insurance type Covered republican ID Radha minaya(s) No Information Social History [...]
--- OUTSIDE RECORDS SUMMARY | 2024-07-06 13:29 | XMS_ITS | Continuity of Care Document ---
Author Organization [facility] Address [address] [facility] [address] [place] [address] Phone Care Team Providers Care Nut Sheller Name Role Phone Ruperto Perez MD Unavailable Unavailable Procedures Procedure Date Office/outpatient visit,[facility] 2010 Drain/inject major jointor bursa 2010 Depo Medrol Methylprednisolone 40 MG inj X-ray exam of knee, 3 views Advance Directives Directive Yes / No Effective Date File Name No Information Encounters Encounter Description Practice Location Reason(s) For Visit Diagnoses Date Provider Providers Copied on Encounter Office/outpat ient visit,[facility], [address], [id number], tel:[phone] [facility] PES ANSERINUS TENDINITISJOINT PAIN-L/LEG 1 Chris Hickey. [address] [facility], [facility] [address], [place], [place], [id number] , [place]. tel: [phone] Family History Family Member Type Diagnosis Age At Onset No Information Payers Payer name Insurance type Covered green party ID Authoriza tion(s) Nichelle Blue Cross Blue Shiel d [place] BL [id number] Social History Type Description Quantity Date Captured [...]
== END 2024-07-06 12:08 | disposition home or self-care (01) ==
PROVIDERS: Emergency Provider Nurse Practitioner Family
DX: J01.90 Acute sinusitis, unspecified (principal)
CPT/HCPCS: 87804; 99213; G0463